=== PATIENT | female | born 1950 | race Caucasian/White ===

== ENCOUNTER 2016-11-09 20:38 | Emergency (ER) | payer MEDICAID, OTHER, SELFPAY ==
[~2016-11-09] VITALS: Ht 157.5 cm; Wt 95.1 kg
[2016-11-09 20:39] VITALS: BP 148/65
[2016-11-09] MEDS ORDERED: OMEP20CA3 (20:50)
[2016-11-09] MEDS ORDERED: ASPI1TAB15 (20:50)
[2016-11-09] MEDS ORDERED: GLIM4TAB (20:50)
[2016-11-09] MEDS ORDERED: ATEN100T (20:50)
[2016-11-09] MEDS ORDERED: CITA20TA4 (20:50)
[2016-11-09] MEDS ORDERED: JANU100T (20:50)
[2016-11-09] MEDS ORDERED: METF500T4 (20:50)
[2016-11-09] MEDS ORDERED: AUGMENTIN 875 MG TAB PO ONE (21:00)
[2016-11-09] MEDS ORDERED: AUGM875T28 PO (21:02)
== END 2016-11-09 21:22 | disposition home or self-care (01) ==
LOC: M ED 20:38
DX: S31.109A Unspecified open wound of abdominal wall, unspecified quadrant without penetration into peritoneal cavity, initial encounter (principal); W55.03XA Scratched by cat, initial encounter; Y92.018 Other place in single-family (private) house as the place of occurrence of the external cause; Y99.9 Unspecified external cause status; Y93.9 Activity, unspecified; E11.9 Type 2 diabetes mellitus without complications; F41.9 Anxiety disorder, unspecified; F32.9 Major depressive disorder, single episode, unspecified; Z88.8 Allergy status to other drugs, medicaments and biological substances; Z79.82 Long term (current) use of aspirin; Z79.84 Long term (current) use of oral hypoglycemic drugs; Z79.899 Other long term (current) drug therapy

== ENCOUNTER → 2018-02-10 | Outpatient (CLI) | payer MEDICARE, MEDICAID ==
[2018-02-10 18:51] LABS: BLOOD UREA NITROGEN 9 MG/DL (7-18)
[2018-02-10 18:51] LABS: CREATININE FOR GFR 0.89 MG/DL (0.55-1.30); GLOMERULAR FILTRATION RATE > 60.0 (>45)
== END ==
LOC: M LAB 17:03
DX: Z01.812 Encounter for preprocedural laboratory examination (principal)
CPT/HCPCS: 82565

== ENCOUNTER → 2018-12-05 | Outpatient (REF) | payer MEDICARE, MEDICAID ==
[~2018-12-05] MED LIST: ASPI1TAB15; ATEN100T; AUGM875T28 PO; CITA20TA6; GLIM4TAB; JANU100T; METF500T4; OMEP20CA4
[2018-12-05 21:30] LABS: APPEARANCE, URINE CLOUDY (CLEAR); BACTERIA, URINE AUTO NEGATIVE (NEGATIVE); BILIRUBIN, URINE AUTO NEGATIVE (NEGATIVE); BLOOD, URINE BLOOD 2+ (NEGATIVE); COLOR, URINE AMBER (YELLOW); GLUCOSE, URINE (UA) AUTO NEGATIVE (NEGATIVE); KETONE, URINE AUTO TRACE mg/dL (NEGATIVE); LEUKOCYTE ESTERASE, URINE AUTO 2+ (NEGATIVE); NITRITE, URINE AUTO POSITIVE (NEGATIVE); PROTEIN, URINE AUTO 2+ mg/dL (NEGATIVE); RBC, URINE AUTO TNTC /HPF (0-3); SPECIFIC GRAVITY URINE AUTO 1.012 (1.002-1.035); SQUAMOUS EPITHELIAL CELL UR AU 1 /HPF (0-6); TRANSITIONAL EPITHELIAL AUTO 1 /HPF; WBC, URINE AUTO TNTC /HPF (0-3)
== END ==
LOC: M LAB REF 10:27
PROVIDERS: ATTEND Physician Assistant Medical
DX: N39.0 Urinary tract infection, site not specified (principal)

== ENCOUNTER → 2019-01-29 | Outpatient (CLI) | payer MEDICARE, MEDICAID ==
[~2019-01-29] MED LIST changes: +METF-791; -METF500T4
--- NOTE | 2019-01-29 17:13 | REP ---
Left knee five views: There are there are no comparisons. There is joint space narrowing of the medial and patellofemoral compartments. There is osteophytic growth along the margins of the medial and patellofemoral joint spaces. The findings are compatible with medial compartment patellofemoral osteoarthritis. The lateral compartment is unremarkable. Mineralization is normal. There is no joint effusion. There are no calcifications. No fracture. Impression: Medial and patellofemoral compartment osteoarthritis. No effusion. Electronically Signed by Darian Almodovar MD 01/29/2019 05:05 P
== END ==
LOC: M RAD 12:49
PROVIDERS: ATTEND Physician Assistant Medical
DX: M25.562 Pain in left knee (principal)

== ENCOUNTER 2019-03-27 13:10 | Emergency (ER) | payer OTHER, MEDICARE, MEDICAID ==
[~2019-03-27] VITALS: Ht 157.5 cm; Wt 91.8 kg
[~2019-03-27 13:10] MED LIST changes: -GLIM4TAB; +GLIM4TAB5; +OMEP1CAP73; -OMEP20CA4
[2019-03-27] MEDS ORDERED: IBUPROFEN 600 MG TAB PO ONE (14:15)
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
--- NOTE | 2019-03-27 14:54 | REP ---
CT CERVICAL SPINE: CT cervical spine performed in the axial plane with sagittal and coronal reconstruction images. There is no compression fracture or malalignment. There is normal cervical lordosis with no prevertebral soft tissue swelling. There is mild spurring diffusely. There is slight disc space narrowing at C5-6 and C6-7. No abnormal density is seen in the spinal canal. IMPRESSION: No evidence of fracture or dislocation. Mild degenerative changes. Electronically Signed by Darian Bustos MD 03/27/2019 03:01 P
[2019-03-27] MEDS ORDERED: IBUP-1022 PO (15:12)
[2019-03-27] MEDS ORDERED: CYCL10TA PO (15:12)
[2019-03-27 15:52] VITALS: BP 138/67
== END 2019-03-27 15:55 | disposition home or self-care (01) ==
LOC: EDBD 13:10 → M ED 13:10
DX: T14.8XXA Other injury of unspecified body region, initial encounter (principal); V43.62XA Car passenger injured in collision with other type car in traffic accident, initial encounter; Y92.9 Unspecified place or not applicable; Y93.9 Activity, unspecified; Y99.9 Unspecified external cause status; I51.9 Heart disease, unspecified; E11.9 Type 2 diabetes mellitus without complications; Z86.73 Personal history of transient ischemic attack (TIA), and cerebral infarction without residual deficits; Z79.82 Long term (current) use of aspirin; Z79.84 Long term (current) use of oral hypoglycemic drugs; Z79.899 Other long term (current) drug therapy; Z88.8 Allergy status to other drugs, medicaments and biological substances

== ENCOUNTER 2019-08-14 20:07 | Emergency (ER) | payer MEDICAID, MEDICARE, OTHER ==
[~2019-08-14] VITALS: Ht 157.5 cm; Wt 88.6 kg
[~2019-08-14 20:07] MED LIST changes: -CITA20TA6; +CITA20TA6 PO; +CYCL-707 PO; -GLIM4TAB5; +GLIM4TAB5 PO; +IBUP-1022 PO; -JANU100T; +JANU100T PO
[2019-08-14] MEDS ORDERED: MORPHINE 2 MG/ML 1ML VIAL (J2270) IV ONE (21:00)
[2019-08-14 21:34] LABS: BASO # 0.1 10^3/uL (0.0-0.2); BASO % 0.4 % (0.0-1.0); EOS # 0.3 10^3/uL (0.0-0.5); EOS % 1.5 % (0.0-3.0); HEMATOCRIT 41.7 % (36.0-47.0); HEMOGLOBIN 12.8 g/dl (12.0-15.5); LYMPH # 2.3 10^3/uL (1.5-5.0); LYMPH % 13.6 % (24.0-44.0); MEAN CORPUSCULAR HEMOGLOBIN 25.4 pg (27.0-33.0); MEAN CORPUSCULAR HGB CONC 30.7 g/dl (32.0-36.5); MEAN CORPUSCULAR VOLUME 82.7 fl (80.0-96.0); MONO # 0.9 10^3/uL (0.0-0.8); MONO % 5.3 % (0.0-5.0); NEUTROPHILS % 78.5 % (36.0-66.0); PLATELET COUNT, AUTOMATED 326 10^3/uL (150-450); RED BLOOD COUNT 5.04 10^6/uL (4.00-5.40); WHITE BLOOD COUNT 16.6 10^3/uL (4.0-10.0)
[2019-08-14 21:53] LABS: BLOOD UREA NITROGEN 11 MG/DL (7-18); CALCIUM LEVEL 10.8 MG/DL (8.8-10.2); CARBON DIOXIDE LEVEL 27 MEQ/L (21-32); CHLORIDE LEVEL 104 MEQ/L (98-107); CREATININE FOR GFR 0.98 MG/DL (0.55-1.30); GLOMERULAR FILTRATION RATE > 60.0 (>45); GLUCOSE, FASTING 151 MG/DL (70-100); POTASSIUM SERUM 4.1 MEQ/L (3.5-5.1); SODIUM LEVEL 137 MEQ/L (136-145)
[2019-08-14] MEDS ORDERED: GI COCKTAIL 50ML BTL(HYOSCYAMINE/MAALOX/LIDOCAINE VISCOUS)(1:3:1) PO ONE (22:00)
[2019-08-14] MEDS ORDERED: NORCO, ANEXSIA 5/325MG TABLET (HYDROcodone/ACETAMINOPHEN) PO ONE (22:45)
[2019-08-14 23:02] VITALS: O2SAT 100
[2019-08-14] MEDS ORDERED: NORC1TAB7 PO (23:28)
[2019-08-14] MEDS ORDERED: IBUP-1022 PO (23:30)
[2019-08-14] MEDS ORDERED: ONDANSETRON 4 MG ORAL DISINTEGRATING TAB (Q0162 PER 1MG) PO ONE (23:30)
[2019-08-15] VITALS: BP 125/58
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
--- NOTE | 2019-08-15 04:00 | REP ---
Clinical: Pain. Fall. Technique: AP and lateral views of the right tibia / fibula. Findings: Advanced tricompartmental arthritic changes at the knee along with age-related degenerative changes at the ankle. No acute fracture or dislocation. No subcutaneous emphysema or foreign body. Impression: Degenerative changes. No acute fracture or dislocation. Electronically Signed by Juan Manuel Plummer MD 08/15/2019 03:51 A
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
--- NOTE | 2019-08-15 15:03 | ECGEPIP ---
[facility] - ED Test Date: 2019-08-14 Pat Name: KAMERON MOORE Department: Room: - Gender: Female Bottom Presser: faviola : 1950 Requested By: JOSÉ TREJO Order Number: [id number] Reading MD: Katie Brady Measurements Intervals [place] Rate: 59 P: 56 WA: 146 QRS: 24 QRSD: 88 T: 82 QT: 342 QTc: 340 Interpretive Statements SINUS BRADYCARDIA LEFT VENTRICULAR HYPERTROPHY AND ST-T CHANGE NSTTW abnormalities Electronically Signed on 08-15-2019 15:03:19 EDT by Katie Brady
[2019-08-16] MEDS ORDERED: ATEN50TA2 PO (16:26)
[2019-08-16] MEDS ORDERED: FAMO40TA3 PO (16:26)
[2019-08-16] MEDS ORDERED: EXEM25TA PO (16:26)
[2019-08-16] MEDS ORDERED: CYCL-707 PO (16:26)
[2019-08-16] MEDS ORDERED: METF-839 PO (16:26)
[2019-08-16] MEDS ORDERED: IBUP-1022 PO (16:26)
[2019-08-16] MEDS ORDERED: PANT-23 PO (16:26)
== END 2019-08-15 01:00 | disposition home or self-care (01) ==
LOC: EDBD 20:07 → M ED 20:07
DX: S70.01XA Contusion of right hip, initial encounter (principal); K21.9 Gastro-esophageal reflux disease without esophagitis; X58.XXXA Exposure to other specified factors, initial encounter; Y92.099 Unspecified place in other non-institutional residence as the place of occurrence of the external cause; Y93.89 Activity, other specified; Y99.9 Unspecified external cause status; R00.1 Bradycardia, unspecified; M17.11 Unilateral primary osteoarthritis, right knee; E11.9 Type 2 diabetes mellitus without complications; I10 Essential (primary) hypertension; F41.9 Anxiety disorder, unspecified; F32.9 Major depressive disorder, single episode, unspecified; M54.9 Dorsalgia, unspecified; Z79.82 Long term (current) use of aspirin; Z79.84 Long term (current) use of oral hypoglycemic drugs; Z79.899 Other long term (current) drug therapy; Z88.8 Allergy status to other drugs, medicaments and biological substances
CPT/HCPCS: 71045; 73502; 73590; 80048; 85025; 86850; 86900; 86901; 93005; 96374; 99284; J2270; Q0162

== ENCOUNTER 2019-08-16 14:38 | Inpatient (IN) | payer MEDICARE ==
[~2019-08-16] VITALS: Ht 160 cm; Wt 83.2 kg
[~2019-08-16 14:38] MED LIST changes: +NORC1TAB7 PO
[2019-08-16] MEDS ORDERED: MORPHINE 4 MG/ML 1ML VIAL/SYRINGE (J2270) IV ONE (15:00)
[2019-08-16] MEDS ORDERED: ONDANSETRON 4MG/2ML VIAL (J2405 PER 1MG) IV ONE (16:15)
--- NOTE | 2019-08-16 16:16 | REP ---
CT PELVIS WITHOUT CONTRAST: CT pelvis performed without IV contrast. Sagittal and coronal reconstruction images are performed. There is a comminuted fracture of the greater trochanter of the proximal right femur. This does not extend into the intertrochanteric region of the proximal right femur nor into the femoral neck. No other fracture or dislocation is seen. There are moderate degenerative changes at both hip joints with joint space narrowing, subchondral sclerosis and spurring. There is mild degenerative change at the sacroiliac joints. There are degenerative changes of the lower lumbar spine. Urinary bladder is collapsed. There is sigmoid diverticulosis without acute diverticulitis. No free fluid or mass is seen in the pelvis. There is no adenopathy. On the most superior images, bowel is seen in the anterior abdominal wall with a probable anterior abdominal hernia more superiorly. Electronically Signed by Darian Bustos MD 08/16/2019 04:27 P
--- NOTE | 2019-08-16 16:18 | REP ---
CT RIGHT HIP: CT right hip performed. Axial images are obtained with sagittal and coronal reconstruction images. There is a comminuted fracture focally of the greater trochanter of the proximal right femur. There is no extension through the intertrochanteric region. No other fracture or dislocation is seen. There are moderate degenerative changes of the right hip joint, with moderate joint space narrowing, subchondral sclerosis and spurring. Electronically Signed by Darian Bustos MD 08/16/2019 04:27 P
[2019-08-16] MEDS ORDERED: IBUP-1022 PO (16:26)
[2019-08-16] MEDS ORDERED: FAMO40TA3 PO (16:26)
[2019-08-16] MEDS ORDERED: CYCL-707 PO (16:26)
[2019-08-16] MEDS ORDERED: ATEN50TA2 PO (16:26)
[2019-08-16] MEDS ORDERED: METF-839 PO (16:26)
[2019-08-16] MEDS ORDERED: EXEM25TA PO (16:26)
[2019-08-16] MEDS ORDERED: PANT-23 PO (16:26)
[2019-08-16] MEDS ORDERED: PERCOCET 5MG/325MG TAB PO PRN (16:45)
[2019-08-16] MEDS ORDERED: ACETAMINOPHEN TAB 650MG DOSE (2X325MG) PO PRN (16:45)
[2019-08-16] MEDS ORDERED: MAALOX 30 ML SUSP *UDC PO PRN (16:45)
[2019-08-16] MEDS ORDERED: DEXTROSE 50% 50 ML SYRINGE IV PRN (16:45)
[2019-08-16] MEDS ORDERED: GLUCAGON FOR INJ 1 MG VIAL (J1610) SC PRN (16:45)
[2019-08-16] MEDS ORDERED: GLUCOSE 4 GM CHEW TABLET PO PRN (16:45)
[2019-08-16] MEDS ORDERED: MOM 30ML SUSPENSION UDC PO PRN (16:45)
[2019-08-16 16:55] LABS: BASO % 0.1 % (0.0-1.0); EOS # 0.2 10^3/uL (0.0-0.5); EOS % 1.4 % (0.0-3.0); HEMOGLOBIN 11.4 g/dl (12.0-15.5); LYMPH # 2.7 10^3/uL (1.5-5.0); LYMPH % 19.1 % (24.0-44.0); MEAN CORPUSCULAR HEMOGLOBIN 25.6 pg (27.0-33.0); MEAN CORPUSCULAR HGB CONC 30.8 g/dl (32.0-36.5); MEAN CORPUSCULAR VOLUME 83.1 fl (80.0-96.0); MONO # 1.2 10^3/uL (0.0-0.8); MONO % 8.7 % (0.0-5.0); NEUTROPHILS # 9.8 10^3/uL (1.5-8.5); NEUTROPHILS % 70.2 % (36.0-66.0); PLATELET COUNT, AUTOMATED 301 10^3/uL (150-450); RED BLOOD COUNT 4.45 10^6/uL (4.00-5.40)
--- NOTE | 2019-08-16 16:55 | HPEPDOC ---
General Date of Admission Date of Service: Aug 16, 2019 Chief Complaint The patient is a 68-year-old female admitted with a reason for visit of Hip Pain. Source: Patient Exam Limitations: No limitations Timing/Duration: Other (last 2-3 days) Severity: Moderate Associated Symptoms: Mechanical fall, Other (, difficulty ambulation) History of Present Illness This is a 68 years old white female with past medical history of diabetes mellitus, hypertension, depression. She sustained a mechanical fall about 2 days ago was seen in the ER. There was a questionable intertrochanteric fracture on the right side, but the x-ray was reviewed and was found to be have only grade to Dr. howell and patient was sent home. Patient has multiple steps. She is unable to ambulate without difficulty so decided to come to ER, which she is being admitted for pain management and physical therapy before she discharge home safely. Patient denies chest pain, shortness of breath, nausea, vomiting, dizziness, etc. Home Medications Scheduled Atenolol (Atenolol) 50 Mg Tablet, 50 MG PO BID, (Reported) Citalopram Hydrobromide (Citalopram HBr) 20 Mg Tab, 20 MG PO QHS, (Reported) Exemestane (Exemestane) 25 Mg Tablet, 25 MG PO DAILY, (Reported) Famotidine (Famotidine) 40 Mg Tablet, 40 MG PO DAILY, (Reported) Glimepiride (Glimepiride) 4 Mg Tab, 4 MG PO BID, (Reported) Metformin HCl (Metformin HCl) 500 Mg Tablet, 500 MG PO DAILY, (Reported) Pantoprazole Sodium (Pantoprazole Sodium) 40 Mg Tablet.dr, 40 MG PO DAILY, (Reported) Sitagliptin Phosphate (Januvia) 100 Mg Tab, 100 MG PO DAILY, (Reported) Scheduled PRN Cyclobenzaprine HCl (Cyclobenzaprine HCl) 10 Mg Tablet, 10 MG PO TID PRN for MUSCLE SPASMS, (Reported) Ibuprofen (Ibuprofen) 600 Mg Tablet, 600 MG PO Q6H PRN for PAIN, (Reported) Allergies Coded Allergies: ramipril (Verified Allergy, Unknown, 03/27/19) Past Medical History Medical History Diabetes mellitus, depression, hypertension Surgical History Cholecystectomy, tubal ligation, ovarian cancer surgery in the past Family History Family history reviewed. She has a history of diabetes and hypertension in both sides of family Social History * Smoker: Denies Alcohol: Denies Drugs: denies A-FIB/CHADSVASC A-FIB History Current/History of A-Fib/PAF?: No Review of Systems Constitutional: Denies: Chills, Fever, Malaise, Night Sweats, Weakness, Fatigue, Weight Loss, Lethargy, Other Eyes: Denies: Pain, Vision change, Conjunctivae inflammation, Eyelid inflamm ation, Redness, Other ENT: Denies: Head Aches, Ear Pain, Dysphagia, Sinus Congestion, Post Nasal Drip, Sore Throat, Epistaxis, Other Symptoms Skin: Denies: Rash, Lesions, Jaundice, Bruising, Itching, Dry, Breakdown, Nail Changes, Other Pulmonary: Denies: Dyspnea, Cough, Pleuritic Chest Pain, Other Symptoms Cardiovascular: Denies: Chest Pain, Palpitations, Orthopnea, Paroxysmal Noc. Dyspnea, Edema, Lt Headedness, Other Symptoms Gastrointestinal: Denies: Nausea, Vomiting, Abdominal Pain, Diarrhea, Constipation, Melena, Hematochezia, Other Symptoms Genitourinary: Denies: Dysuria, Frequency, Incontinence, Hematuria, Retention, Other Symptoms Hematologic: Denies: Bruising, Bleeding Excessively, Petecchia, Purpura, Enlarged Lymph Nodes, Other Hematologic Endocrine: Denies: Polydipsia, Polyphagia, Polyuria, Heat Intolerance, Cold Intolerance, Other Endocrine Sx Musculoskeletal: Reports: Other Symptoms (. Then on right hip. An ablation) Neurological: Denies: Weakness, Numbness, Incoordination, Change in speech, Confusion, Seizures, Other Symptoms Psych: Denies: Mood Normal, Anxiety, Depression, Memory Issues, Thoughts of Self Harm, Anger, Thoughts of Harming Other, Other Psych Physical Examination General Exam: Positive: Alert, Cooperative Eye Exam: Positive: PERRLA, Conjunctiva & lids normal ENT Exam: Positive: Atraumatic, Mucous membr. moist/pink Neck Exam: Positive: Supple Chest Exam: Positive: Clear to auscultation, Normal air movement Heart Exam: Positive: Rate Normal, Normal S1, Normal S2 Abdomen Exam: Positive: Normal bowel sounds, Soft Extremity Exam: Positive: Normal pulses, Other (. Positive tenderness on the right. On palpation, but no restriction of movements) Skin Exam: Positive: Nl turgor and temperature Psych Exam: Positive: Mood NL, Oriented x 3 Vital Signs Vital Signs Date Time Temp Pulse Resp B/P (MAP) Pulse Ox O2 Delivery O2 Flow Rate FiO2 08/16/19 15:42 18 96 Room Air 08/16/19 15:03 98.8 68 169/77 (107) Problems (1) Greater trochanter fracture Status: Acute Problem Text: [facility] Pain management with Percocet as per orders Physical therapy and a compression therapy evaluation in a.m. Discharge disposition depends on the PT recommendation either to rehabilitation facility for PT inpatient for a few days Activity ambulation with support Diet is consistent carbohydrate diet DVT prophylaxis with heparin Continue all home meds Addendum : Blood work was ordered from ED, but still pending, CT of the right hip shows: Comminuted fracture focally of the greater trochanter of the proximal right femur. There is no extension through the intertrochanteric region (2) Decreased ambulation status Status: Acute Problem Text: Secondary to fracture of greater trochanter on right side secondary to mechanical fall Fall precautions Pain management PT, OT eval (3) HTN (hypertension) Status: Chronic Problem Text: Continue home meds (4) Diabetes mellitus Status: Chronic Problem Text: Fingerstick blood sugar every before meals and at bedtime with coverage Continue home meds (5) GERD (gastroesophageal reflux disease) Status: Chronic Problem Text: Continue home meds (6) Depression Status: Chronic Problem Text: Continue home meds Plan / VTE VTE Prophylaxis Ordered?: Yes RADHA ACUÑA MD Aug 16, 2019 16:55
[2019-08-16 17:20] LABS: CALCIUM LEVEL 9.9 MG/DL (8.8-10.2); CREATININE FOR GFR 1.05 MG/DL (0.55-1.30); GLOMERULAR FILTRATION RATE 55.7 (>45); POTASSIUM SERUM 4.5 MEQ/L (3.5-5.1)
[2019-08-16] MEDS: HumaLOG INSULIN (NovoLOG) PER UNIT SC SCH (17:30)
[2019-08-16 18:10] VITALS: BP 125/61
[2019-08-16] MEDS: FAMOTIDINE 20 MG TAB PO SCH (18:20)
[2019-08-16] MEDS: PERCOCET 5MG/325MG TAB PO PRN (18:28)
[2019-08-16] MEDS: DOCUSATE SODIUM 100 MG CAP PO SCH (20:41)
[2019-08-16] MEDS: CYCLOBENZAPRINE 10MG TABLET PO PRN (20:41)
[2019-08-16] MEDS: GLIMEPIRIDE 2 MG TAB PO SCH (20:41)
[2019-08-16] MEDS: HEPARIN SOD (PORCINE) 5000UNITS/ML VIAL (J1644 PER 1000UNITS) SC SCH (20:45)
[2019-08-16] MEDS: atenoloL 50 MG TAB PO SCH (20:45)
[2019-08-16] MEDS ORDERED: HumaLOG INSULIN (NovoLOG) PER UNIT SC SCH (21:00)
[2019-08-16] MEDS ORDERED: CitaloPRAM (CeleXA) 20 MG TAB PO SCH (21:00)
[2019-08-16 22:00] VITALS: BP 122/64
[2019-08-17] MEDS: CYCLOBENZAPRINE 10MG TABLET PO PRN (05:41)
[2019-08-17] MEDS: PERCOCET 5MG/325MG TAB PO PRN (05:41)
[2019-08-17 06:00] VITALS: BP 143/65
[2019-08-17 06:59] LABS: HEMATOCRIT 36.8 % (36.0-47.0); HEMOGLOBIN 11.1 g/dl (12.0-15.5); MEAN CORPUSCULAR HEMOGLOBIN 25.4 pg (27.0-33.0); MEAN CORPUSCULAR HGB CONC 30.2 g/dl (32.0-36.5); MEAN CORPUSCULAR VOLUME 84.2 fl (80.0-96.0); PLATELET COUNT, AUTOMATED 263 10^3/uL (150-450); RED BLOOD COUNT 4.37 10^6/uL (4.00-5.40); WHITE BLOOD COUNT 8.7 10^3/uL (4.0-10.0)
[2019-08-17 07:29] LABS: BILIRUBIN,TOTAL 0.4 MG/DL (0.2-1.0); CALCIUM LEVEL 9.3 MG/DL (8.8-10.2); CREATININE FOR GFR 1.11 MG/DL (0.55-1.30); GLOMERULAR FILTRATION RATE 52.2 (>45); MAGNESIUM LEVEL 2.2 MG/DL (1.8-2.4); TOTAL PROTEIN 7.1 GM/DL (6.4-8.2)
[2019-08-17] MEDS: HEPARIN SOD (PORCINE) 5000UNITS/ML VIAL (J1644 PER 1000UNITS) SC SCH (07:37)
[2019-08-17 07:38] VITALS: BP 143/65
[2019-08-17] MEDS: FAMOTIDINE 20 MG TAB PO SCH (07:38)
[2019-08-17] MEDS: atenoloL 50 MG TAB PO SCH (07:38)
[2019-08-17] MEDS: DOCUSATE SODIUM 100 MG CAP PO SCH (07:38)
[2019-08-17] MEDS: GLIMEPIRIDE 2 MG TAB PO SCH (07:38)
[2019-08-17] MEDS: HumaLOG INSULIN (NovoLOG) PER UNIT SC SCH ×2 (07:39→12:18)
[2019-08-17] MEDS ORDERED: SITagliptin 50 MG TAB (JANUVIA) PO SCH (09:00)
[2019-08-17] MEDS ORDERED: PANTOPRAZOLE 40MG TAB (PROTONIX) PO SCH (09:00)
[2019-08-17] MEDS ORDERED: metFORMIN (GLUCOPHAGE) 500 MG TAB PO SCH (09:00)
--- NOTE | 2019-08-17 09:45 | DS.PDOC ---
Discharge Summary General Date of Admission Aug 16, 2019 at 16:33 Date of Discharge 08/17/19 Discharge Summary PROCEDURES PERFORMED DURING STAY: None. ADMITTING DIAGNOSES: 1. Difficulty ambulation, the right greater trochanter fracture. DISCHARGE DIAGNOSES: 1. Difficulty ambulation, right great clock and her fracture. COMPLICATIONS/CHIEF COMPLAINT: Decreased Ambulation Status. HISTORY OF PRESENT ILLNESS: This is a 68 years old white female with past medical history of diabetes mellitus, hypertension, depression. She sustained a mechanical fall about 2 days ago was seen in the ER. There was a questionable intertrochanteric fracture on the right side, but the x-ray was reviewed and was found to be have only grade to Dr. howell and patient was sent home. Patient has multiple steps. She is unable to ambulate without difficulty so decided to come to ER, which she is being admitted for pain management and physical therapy before she discharge home safely. Patient denies chest pain, shortness of breath, nausea, vomiting, dizziness, etc.. HOSPITAL COURSE: Patient was admitted with the chief complaints of right hip pain, difficulty ambulation., Patient's blood work is essentially within normal limits Patient was able to ambulate with support today and she possibly needs further physical therapy to maintain her ADLs Once patient accepted to rehabilitation facility. She'll be discharged today for further management Continue all current home meds DISCHARGE MEDICATIONS: Please see below. ALLERGIES: Please see below. PHYSICAL EXAMINATION ON DISCHARGE: VITAL SIGNS: Please see below. GENERAL: Within normal limits HEENT: PERRLA. Extraocular muscles intact NECK: Supple CARDIOVASCULAR EXAMINATION: S1, S2, regular RESPIRATORY EXAMINATION: Clear to A&P ABDOMINAL EXAMINATION: Benign EXTREMITIES: No clubbing, cyanosis, edema SKIN: Normal NEUROLOGICAL EXAMINATION: . No focal motor sensory deficit PSYCHIATRIC EXAMINATION: Normal LABORATORY DATA: Please see below. IMAGING: CT right hip: Nondisplaced fracture of the greater trochanter PROGNOSIS: Good ACTIVITY: As tolerated. DIET: Diabetic diet DISCHARGE PLAN: Discharge to rehabilitation facility DISPOSITION: . Rehabilitation facility DISCHARGE INSTRUCTIONS: 1. As per discharge instructions. ITEMS TO FOLLOWUP ON ON OUTPATIENT: 1. As above. DISCHARGE CONDITION: Stable. TIME SPENT ON DISCHARGE: 25 minutes. Vital Signs/I&Os Vital Signs Date Time Temp Pulse Resp B/P (MAP) Pulse Ox O2 Delivery O2 Flow Rate FiO2 08/17/19 07:38 57 143/65 08/17/19 06:11 16 08/17/19 06:00 98.0 93 Room Air I&O- Last 24 Hours up to 6 AM 08/17/19 06:00 Intake Total 940 ml Balance 940 ml Laboratory Data Labs 24H Laboratory Tests 2 08/16/19 16:42: Immature Granulocyte % (Auto) 0.5, Neutrophils (%) (Auto) 70.2H, Lymphocytes (%) (Auto) 19.1L, Monocytes (%) (Auto) 8.7H, Eosinophils (%) (Auto) 1.4, Basophils (%) (Auto) 0.1, Neutrophils # (Auto) 9.8H, Lymphocytes # (Auto) 2.7, Monocytes # (Auto) 1.2H, Eosinophils # (Auto) 0.2, Basophils # (Auto) 0.0, Nucleated Red Blood Cells % (auto) 0.0, Anion Gap 5L, Glomerular Filtration Rate 55.7, Calcium Level 9.9 08/16/19 18:07: Bedside Glucose (Misc Panel) 117H 08/16/19 19:57: Bedside Glucose (Misc Panel) 141H 08/17/19 06:29: Nucleated Red Blood Cells % (auto) 0.0, Anion Gap 6L, Glomerular Filtration Rate 52.2, Calcium Level 9.3, Magnesium Level 2.2, Total Bilirubin 0.4, Aspartate Amino Transf (AST/SGOT) 57H, Alanine Aminotransferase (ALT/SGPT) 41, Alkaline Phosphatase 74, Total Protein 7.1, Albumin 3.0L, Albumin/Globulin Ratio 0.73L CBC/BMP Laboratory Tests 08/16/19 16:42 08/17/19 06:29 FSBS Laboratory Tests Test 08/16/19 18:07 08/16/19 19:57 Range/Units Bedside Glucose (Misc Panel) 117 141 80-115 MG/DL Discharge Medications Scheduled Atenolol (Atenolol) 50 Mg Tablet, 50 MG PO BID, (Reported) Citalopram Hydrobromide (Citalopram HBr) 20 Mg Tab, 20 MG PO QHS, (Reported) Exemestane (Exemestane) 25 Mg Tablet, 25 MG PO DAILY, (Reported) Famotidine (Famotidine) 40 Mg Tablet, 40 MG PO DAILY, (Reported) Glimepiride (Glimepiride) 4 Mg Tab, 4 MG PO BID, (Reported) Metformin HCl (Metformin HCl) 500 Mg Tablet, 500 MG PO DAILY, (Reported) Pantoprazole Sodium (Pantoprazole Sodium) 40 Mg Tablet.dr, 40 MG PO DAILY, (Reported) Sitagliptin Phosphate (Januvia) 100 Mg Tab, 100 MG PO DAILY, (Reported) Scheduled PRN Cyclobenzaprine HCl (Cyclobenzaprine HCl) 10 Mg Tablet, 10 MG PO TID PRN for MUSCLE SPASMS, (Reported) Ibuprofen (Ibuprofen) 600 Mg Tablet, 600 MG PO Q6H PRN for PAIN, (Reported) Allergies Coded Allergies: ramipril (Verified Allergy, Unknown, 03/27/19) RADHA ACUÑA MD Aug 17, 2019 09:45
[2019-08-17] MEDS ORDERED: PERCOCET PO (11:31)
--- NOTE | 2019-08-17 17:38 | CR ---
DATE OF CONSULTATION: 08/17/2019 CHIEF COMPLAINT: Right hip isolated greater trochanter fracture. HISTORY OF THE PRESENT ILLNESS: This 68-year-old female was seen today on the [address] at [facility]. She had had a fall 3 days ago now. She had recently presented to the emergency department 2 days ago with pain in the hip. X-rays of the head showed an isolated greater trochanteric hip fracture. However, she was discharged home. She was having difficulties weightbearing, so she was brought back in. CT scan was performed and showed the same injury without extension to the intertrochanteric region, so she admitted under the hospitalist service at my request. Most of her pain is on the lateral side of the hip. No pain in the groin. She has been trying to ambulate with a walker and seen by what sounds like the PT team. PAST MEDICAL HISTORY: Includes diabetes mellitus, depression, hypertension. HOME MEDICATIONS: Include atenolol, citalopram, exemestene, famotidine, glimiperidine, metformin, pantoprazole, sitagliptin phosphate. ALLERGIES: To RAMIPRIL. PAST SURGICAL HISTORY: Cholecystectomy, tubal ligation, ovarian cancer surgery in the past. SOCIAL HISTORY: Denies smoking, alcohol, drug use. PHYSICAL EXAMINATION: She is a well-appearing 68-year-old female. She is laying supine in bed. There is no obvious overlying redness, swelling, ecchymosis, deformity to either hip. Both lower extremities are neurovascularly intact. Normal sensation to both feet. Feet are warm and well perfused. Good pedal pulses. She is able to wiggle her toes, dorsiflex and plantarflex the foot. No pain at the knee or ankle. There is pain to palpation of the lateral side of the right hip, nothing on the left side and no groin pain. Radiographs were reviewed of the right hip from 08/14/2019. I agree with the radiologist's interpretation; nondisplaced fracture involving the intertrochanteric region of the right hip. Fracture cannot be excluded, although there does appear to be a minimally displaced isolated greater trochanteric hip fracture. CT of the hip was also reviewed from 08/16/2019. There is comminuted fracture focally of the greater trochanter of the proximal right femur. There is no extension through the intertrochanteric region. No other fracture or dislocation seen. The displacement is approximately 7-8 mm at maximum distance. ASSESSMENT/PLAN: This is a 68-year-old female. In terms of her right hip injury, she should be nonweightbearing if at all possible to only partial weightbearing for 6 weeks with a walker. She should have repeat x-rays in a week from the injury time to confirm that there is no further displacement, as sometimes due to the pull of the abductors, these can go on to further displacement and may need surgical fixation. However, for now, I think this is within acceptable limits. We would like her to followup in the office if she is at all able to within the next 5-6 days for repeat radiographs and otherwise medical management per the hospitalist team. I communicated this to the nursing staff as well.
== END 2019-08-17 14:20 | DRG 536 ==
LOC: EDBD 14:38 → M ED 14:38 → M ED INP 16:33 → ENRESERV 17:00 → M MS5PR 17:44
PROVIDERS: ADMIT Internal Medicine; ATTEND Internal Medicine
DX: S72.114A Nondisplaced fracture of greater trochanter of right femur, initial encounter for closed fracture (principal); K21.9 Gastro-esophageal reflux disease without esophagitis; X58.XXXA Exposure to other specified factors, initial encounter; Y92.099 Unspecified place in other non-institutional residence as the place of occurrence of the external cause; Y93.89 Activity, other specified; Y99.9 Unspecified external cause status; E11.9 Type 2 diabetes mellitus without complications; I10 Essential (primary) hypertension; F32.9 Major depressive disorder, single episode, unspecified; Z79.899 Other long term (current) drug therapy; Z88.8 Allergy status to other drugs, medicaments and biological substances; R26.89 Other abnormalities of gait and mobility

== ENCOUNTER → 2025-02-15 | Outpatient (CLI) | payer MEDICARE, MEDICAID ==
[~2025-02-15] MED LIST changes: +ASPI-546; -ASPI1TAB15; +ATEN50TA2 PO; +EXEM25TA PO; +FAMO40TA3 PO; -IBUP-1022 PO; +IBUP600T42 PO; -METF-791; +METF-838; +METF-839 PO; +PANT-23 PO; +PERCOCET PO
== END ==
LOC: M WHC 09:29
PROVIDERS: ATTEND Physician Assistant Medical
DX: N95.9 Unspecified menopausal and perimenopausal disorder (principal); M85.852 Other specified disorders of bone density and structure, left thigh